=== PATIENT | male | born 1990 | race Caucasian/White ===

== ENCOUNTER 2019-10-08 15:44 | Emergency (ER) | payer BC, OTHER ==
[2019-10-08] MEDS ORDERED: KETOROLAC TROMETHAMINE INJ/PF 30 MG/1 ML SDV IV ONE (17:00)
[2019-10-08] MEDS ORDERED: NORMAL SALINE 1000 ML 1,000 ML IV ONE (17:00)
[2019-10-08] MEDS ORDERED: ONDANSETRON HCL INJ/PF 4 MG/2 ML SDV IV ONE (17:00)
--- NOTE | 2019-10-08 17:01 | ER Document Report ---
ED GI/ - General Chief Complaint: Abdominal Pain Stated Complaint: ABDOMINAL PAIN Time Seen by Provider: 10/08/19 16:37 Primary Care Provider: RODRICK GALVIN MD [NO LOCAL MD] - Follow up tomorrow (Call tomorrow for an outpatient follow-up appointment.) ALEJANDRA DIEHL [NO ANNALEE DESAI] - Follow up as needed Mode of Arrival: Medic Information source: Patient Notes: 29-year-old male no previous medical problems presents to the emergency room complaining of sudden sharp left lower quadrant pain with nausea and vomiting that started around 2 PM today. Denies fevers. Denies any urinary symptoms. However she does state is been call to urinate today. Denies any history of kidney stones, no medications for symptoms. Patient was given fentanyl in route by EMS without relief. TRAVEL OUTSIDE OF THE [place] IN LAST 30 DAYS: No - Related Data Allergies/Adverse Reactions: No Known Allergies Allergy (Verified 10/08/19 16:25) Past Medical History - General Information source: Patient - Social History Smoking Status: Current Every Day Smoker Frequency of alcohol use: Social Drug Abuse: None Family History: Reviewed & Not Pertinent - Medical History Medical History: Negative Past Surgical History: Reports: Hx Orthopedic Surgery - R ankle Review of Systems - Review of Systems Constitutional: No symptoms reported Cardiovascular: No symptoms reported Respiratory: No symptoms reported Gastrointestinal: Abdominal pain, Nausea, Vomiting. denies: Diarrhea, Constipation Genitourinary: Retention Musculoskeletal: No symptoms reported Skin: No symptoms reported Neurological/Psychological: No symptoms reported -: Yes All other systems reviewed and negative Physical Exam - Vital signs Vitals: Temp Pulse Resp BP Pulse Ox 97.5 F 50 L 22 H 175/98 H 98 10/08/19 16:13 10/08/19 16:13 10/08/19 16:13 10/08/19 16:13 10/08/19 16:13 - General General appearance: Appears well, Alert In distress: Moderate - Respiratory Respiratory status: No respiratory distress Chest status: Nontender Breath sounds: Normal Chest palpation: Normal - Cardiovascular Rhythm: Bradycardia Heart sounds: Normal auscultation Murmur: No Friction rub: No - Abdominal Inspection: Normal Distension: No distension Bowel sounds: Normal Tenderness: Tender - Tenderness on palpation to the left lower quadrant, no guarding, no rebound. No: Guarding, Rebound Organomegaly: No organomegaly. No: Hepatomegaly, Splenomegaly - Back Back: Normal, Nontender. No: CVA tenderness - Neurological Neuro grossly intact: Yes Cognition: Normal Orientation: AAOx4 [place] Coma Scale Eye Opening: Spontaneous Whit Coma Scale Verbal: Oriented [place] Coma Scale Motor: Obeys Commands [place] Coma Scale Total: 15 Speech: Normal Motor strength normal: LUE, RUE, LLE, RLE Sensory: Normal - Skin Skin Temperature: Warm Skin Moisture: Dry Skin Color: Normal Course - Re-evaluation Re-evalutation: 10/08/19 19:42 Reviewed lab and CAT scan results with patient. Aware that I will consult the urologist to determine course of treatment. Patient is resting comfortably with decreased pain. 10/08/19 20:00 Discussed with patient to call Dr[facility] Gal[facility] tomorrow for an outpatient follow-up appointment. Patient was given a urine strainer was counseled to use it if he passes a stone he is to bring it with him to the office. Counseled takes medications as prescribed. Push fluids. E[place]se was reviewed okay to be given narcotic occasions patient was given strict return to the emergency room guidelines. Return for any new or worsening symptoms. All questions were answered. Patient verbalized understanding and agrees with plan of care. - Vital Signs Vital signs: Temp Pulse Resp BP Pulse Ox 97.9 F 86 20 133/74 H 98 10/08/19 20:00 10/08/19 20:00 10/08/19 20:00 10/08/19 20:00 10/08/19 20:00 - Laboratory Result Diagrams: 10/08/19 16:27 10/08/19 16:27 Laboratory results interpreted by me: 10/08/19 10/08/19 10/08/19 16:27 16:27 18:15 WBC 23.1 H Seg Neuts % (Manual) 87 H Lymphocytes % (Manual) 8 L Monocytes % (Manual) 2 L Abs Neuts (Manual) 20.1 H Abs Basophils (Manual) 0.5 H Glucose 116 H Urine Protein >=500 H Urine Blood SMALL H Urine Ascorbic Acid 20 H - Diagnostic Test Radiology reviewed: Reports reviewed - Consults Dr. Galvin Time consulted: 19:48 Reason for consultation: 10/08/19 19:48 Reviewed all lab results and CAT scan results with Dr. Galvin with [facility]. Patient to be discharged home on p.o. Cipro and p.o. Flomax. Patient to call the office tomorrow for an outpatient follow-up appointment. Consulted provider: follow-up in office Discharge - Discharge Clinical Impression: Ureteral stone with hydronephrosis Condition: Stable Disposition: HOME, SELF-CARE Additional Instructions: Take medications as prescribed. Push fluids. Call [facility] urology tomorrow for an outpatient follow-up appointment. Strain all urine. Return for any new or worsening symptoms. Prescriptions: Tamsulosin HCl [Flomax 0.4 mg Cap.sr] 0.4 mg PO DAILY #7 cap.sr.24h Forms: Return to Work Referrals: ALEJANDRA DIEHL [NO LOCAL MD] - Follow up as needed RODRICK GALVIN MD [NO LOCAL MD] - Follow up tomorrow (Call tomorrow for an outpatient follow-up appointment.)
[2019-10-08 17:24] LABS: HEMATOCRIT 47.7 % (37.9-51.0); MEAN CORPUSCULAR HEMOGLOBIN 31.7 pg (27.0-33.4); MEAN CORPUSCULAR HGB CONC 35.7 g/dL (32.0-36.0); MEAN CORPUSCULAR VOLUME 89 fl (80-97); PLATELET COUNT 268 10^3/uL (150-450); RED BLOOD COUNT 5.36 10^6/uL (4.35-5.55); RED CELL DISTRIBUTION WIDTH 12.7 % (11.5-14.0); WHITE BLOOD COUNT 23.1 10^3/uL (4.0-10.5)
[2019-10-08 17:37] LABS: ALBUMIN 4.5 g/dL (3.5-5.0); ALKALINE PHOSPHATASE 80 U/L (38-126); ANION GAP 7 (5-19); ASPARTATE AMINO TRANSFERASE 24 U/L (17-59); BILIRUBIN,TOTAL 0.6 mg/dL (0.2-1.3); BLOOD UREA NITROGEN 16 mg/dL (7-20); CALCIUM 9.6 mg/dL (8.4-10.2); CARBON DIOXIDE 26 mmol/L (22-30); CHLORIDE 105 mmol/L (98-107); GLUCOSE 116 mg/dL (75-110); POTASSIUM 4.3 mmol/L (3.6-5.0); TOTAL PROTEIN 7.3 g/dL (6.3-8.2)
[2019-10-08 17:51] LABS: ABSOLUTE LYMPHOCYTES# (MANUAL) 1.8 10^3/uL (0.5-4.7); ABSOLUTE MONOCYTES # (MANUAL) 0.5 10^3/uL (0.1-1.4); BASOPHILS % (MANUAL) 2 % (0-2); EOSINOPHILS % (MANUAL) 1 % (0-6); LYMPHOCYTES % (MANUAL) 8 % (13-45); MONOCYTES % (MANUAL) 2 % (3-13); SEGMENTED NEUTROPHILS % (MAN) 87 % (42-78); TOTAL CELLS COUNTED 100
[2019-10-08 17:52] LABS: PLATELET COMMENT ADEQUATE
[2019-10-08 17:55] LABS: SCHISTOCYTES SLIGHT
[2019-10-08 18:47] LABS: AMORPHOUS SEDIMENT,URINE TRACE /HPF; APPEARANCE,URINE CLOUDY; BILIRUBIN,URINE NEGATIVE (NEGATIVE); COLOR,URINE AMBER; GLUCOSE, URINE NEGATIVE (NEGATIVE); KETONES,URINE NEGATIVE (NEGATIVE); LEUKOCYTE ESTERASE,URINE NEGATIVE (NEGATIVE); NITRITE,URINE NEGATIVE (NEGATIVE); PROTEIN,URINE >=500 mg/dL (NEGATIVE); URINE SPECIFIC GRAVITY 1.032; UROBILINOGEN,URINE NEGATIVE mg/dL (<2.0)
--- NOTE | 2019-10-08 19:20 | RADIOLOGY REPORT (SQ) ---
EXAM DESCRIPTION: CT ABD/PELVIS WITH IV ONLY IMAGES COMPLETED DATE/TIME: 10/08/2019 6:03 pm REASON FOR STUDY: abdominal pain . Left upper and lower quadrant abdominal pain. COMPARISON: None. TECHNIQUE: CT scan of the abdomen and pelvis performed using helical scanning technique with dynamic intravenous contrast injection. No oral contrast. Images reviewed with lung, soft tissue, and bone windows. Reconstructed coronal and sagittal MPR images reviewed. Delayed images for evaluation of the urinary system also acquired. All images stored on PACS. All CT scanners at this facility use dose modulation, iterative reconstruction, and/or weight based d osing when appropriate to reduce radiation dose to as low as reasonably achievable (ALARA). [facility]: Dose Right [facility]: CareDose [facility]: Dose Right [facility]: Teradose 4D [facility]: LonoCloud CONTRAST TYPE AND DOSE: contrast/concentration: Isovue 350.00 mmol/ml; Total Contrast Delivered: 94. 0 ml; Total Saline Delivered: 58.0 ml RENAL FUNCTION: GFR > 60. RADIATION DOSE: CT Rad equipment meets quality standard of care and radiation dose reduction techniq ues were employed. CTDIvol: 7.2 - 10.0 mGy. DLP: 934 mGy-cm.. LIMITATIONS: None. FINDINGS: LOWER CHEST: No significant findings. No nodules or infiltrates. LIVER: Normal size. No masses. No dilated ducts. SPLEEN: Normal size. No focal lesions. PANCREAS: No masses. No significant calcifications. No adjacent inflammation or peripancreatic fluid collections. Pancreatic duct not dilated. GALLBLADDER: No identified stones by CT criteria. No inflammatory changes to suggest cholecystitis. ADRENAL GLANDS: No significant masses or asymmetry. RIGHT KIDNEY AND URETER: No solid masses. No significant calcifications. No hydronephrosis or hyd roureter. LEFT KIDNEY AND URETER: Mild asymmetric delayed nephrogram. No solid mass. There is an obstructing 2 mm distal left ureteral calculus at the ureterovesical junction. No other obstructing or nonobstr ucting renal or ureteral calculi. Moderate left hydronephrosis and hydroureter. No perinephric flu id. Mild perinephric inflammatory change. AORTA AND VESSELS: No aneurysm. No dissection. Renal arteries, SMA, celiac without stenosis. RETROPERITONEUM: No retroperitoneal adenopathy, hemorrhage or masses. BOWEL AND PERITONEAL CAVITY: No masses or inflammatory changes. No free fluid or peritoneal masses. APPENDIX: Normal. PELVIS: No mass. No free fluid. Normal bladder. ABDOMINAL WALL: No masses. No hernias. BONES: No significant or acute findings. OTHER: No other significant finding. IMPRESSION: Obstructing distal left ureteral calculus at the ureterovesical junction. Moderate left hydronephrosis and hydroureter. TECHNICAL DOCUMENTATION: JOB ID: [id number] Quality ID # [id number]: Final reports with documentation of one or more dose reduction techniques (e.g., Au tomated exposure control, adjustment of the mA and/or kV according to patient size, use of iterative reconstruction technique) 2010 [employer]- All Rights Reserved Reading location - IP/workstation name: [email or web address]
[2019-10-08] MEDS ORDERED: HYDROCODONE/ACETAMINOPHEN 5-325 MG (6 TAB/ER DISP) PO PRN (19:50)
[2019-10-08] MEDS ORDERED: CIPROFLOXACIN HCL 500 MG TABLET PO ONE (19:50)
[2019-10-08 20:04] VITALS: BP 133/74
== END 2019-10-08 20:13 | disposition home or self-care (01) ==
LOC: ER 15:44
DX: N13.2 Hydronephrosis with renal and ureteral calculous obstruction (principal); R10.32 Left lower quadrant pain; R10.814 Left lower quadrant abdominal tenderness; R11.2 Nausea with vomiting, unspecified; F17.200 Nicotine dependence, unspecified, uncomplicated; R00.1 Bradycardia, unspecified
CPT/HCPCS: 99284; 96361; 96374; 96375; 36415; 87086; 83690; 85025; 80053; 81001; 74177; J1885; J2405; J7030